=== PATIENT | female | born 1970 | race Two or more races ===

== ENCOUNTER 2021-03-16 21:38 | Emergency (ER) | payer MEDICAID, OTHER ==
[~2021-03-16] VITALS: Ht 149.9 cm; Wt 59.9 kg
[2021-03-16 21:40] VITALS: BP 168/87
== END 2021-03-17 00:30 | disposition left against medical advice (07) ==
LOC: ER 21:44
DX: T63.391A Toxic effect of venom of other spider, accidental (unintentional), initial encounter (principal); Y92.89 Other specified places as the place of occurrence of the external cause; Z53.21 Procedure and treatment not carried out due to patient leaving prior to being seen by health care provider